=== PATIENT | female | born 1985 | race Two or more races ===

== ENCOUNTER 2017-03-22 12:16 | Emergency (ER) | payer OTHER ==
[2017-03-22 12:49] LABS: URINE SOURCE CLEAN CATCH
[2017-03-22 12:57] LABS: URINE APPEARANCE CLOUDY; URINE BILIRUBIN NEG (NEG); URINE BLOOD 1+ (NEG); URINE COLOR YELLOW; URINE GLUCOSE NEG (NEG); URINE KETONE NEG (NEG); URINE LEUKOCYTE ESTERASE 1+ (NEG); URINE NITRATE NEG (NEG); URINE PROTEIN NEG (NEG); URINE SPECIFIC GRAVITY 1.015 (1.003-1.035); URINE UROBILINOGEN 0.2 MG/DL (NEG)
[2017-03-22 12:59] LABS: CULTURE INDICATED? YES; URINE BACTERIA AUWI 3+ (NEGATIVE); URINE SQUAMOUS EPITHELIAL CELL MOD /[HPF]
[2017-03-23 21:24] LABS: CHLAMYDIA TRACH Not Detected (Not Detected); N GONOR Not Detected (Not Detected)
== END 2017-03-22 14:06 | disposition home or self-care (01) ==
LOC: CFTX 12:16 → CED 12:16 → CFTX 12:56
PROVIDERS: Physician Assistant
DX: N39.0 Urinary tract infection, site not specified (principal); Z98.51 Tubal ligation status
CPT/HCPCS: 81003; 84703; 87086; 87088; 87186; 87220; 87491; 87591; 87808; 87905; 99283